=== PATIENT | male | born 1995 | race Two or more races ===

== ENCOUNTER 2021-07-23 08:25 | Emergency (ER) | payer OTHER ==
[~2021-07-23] VITALS: Ht 182.9 cm; Wt 93.2 kg
[2021-07-23] MEDS ORDERED: ASPIRIN 81 MG CHEW TABLET PO ONE (09:10)
[2021-07-23] MEDS ORDERED: GI COCKTAIL 50ML BTL(HYOSCYAMINE/MAALOX/LIDOCAINE VISCOUS)(1:3:1) PO ONE (09:10)
[2021-07-23] MEDS ORDERED: NITROGLYCERIN 0.4 MG SUBL TABLET SL STA (09:10)
[2021-07-23] MEDS ORDERED: ONDANSETRON 4MG/2ML VIAL IV ONE (09:20)
[2021-07-23] MEDS ORDERED: NS 1,000 ML IV ONE (09:20)
[2021-07-23 09:36] LABS: BASO # 0.1 10^3/uL (0.0-0.2); BASO % 0.8 % (0.0-1.0); EOS # 0.1 10^3/uL (0.0-0.5); EOS % 1.8 % (0.0-3.0); HEMATOCRIT 44.9 % (42.0-52.0); LYMPH # 0.9 10^3/uL (1.5-5.0); LYMPH % 13.9 % (24.0-44.0); MEAN CORPUSCULAR HEMOGLOBIN 27.9 pg (27.0-33.0); MEAN CORPUSCULAR HGB CONC 33.4 g/dl (32.0-36.5); MEAN CORPUSCULAR VOLUME 83.6 fl (80.0-96.0); MONO # 0.5 10^3/uL (0.0-0.8); MONO % 7.3 % (2.0-8.0); NEUTROPHILS % 75.7 % (36.0-66.0); PLATELET COUNT, AUTOMATED 194 10^3/uL (150-450); RED BLOOD COUNT 5.37 10^6/uL (4.30-6.10); WHITE BLOOD COUNT 6.6 10^3/uL (4.0-10.0)
[2021-07-23 09:41] VITALS: BP 141/64
[2021-07-23 10:06] LABS: AMPHETAMINES LEVEL URINE NEGATIVE (NEGATIVE); BARBITURATES URINE NEGATIVE (NEGATIVE); BENZODIAZEPINES URINE NEGATIVE (NEGATIVE); CANNABINOIDS URINE NEGATIVE (NEGATIVE); COCAINE METABOLITE URINE NEGATIVE (NEGATIVE); METHADONE URINE NEGATIVE (NEGATIVE); OPIATES URINE NEGATIVE (NEGATIVE); PHENCYCLIDINE URINE NEGATIVE (NEGATIVE)
[2021-07-23 10:31] LABS: ALBUMIN 3.8 GM/DL (3.2-5.2); ALT/SGPT 37 U/L (12-78); BILIRUBIN,DIRECT 0.2 MG/DL (0.0-0.2); BLOOD UREA NITROGEN 12 MG/DL (7-18); CALCIUM LEVEL 8.8 MG/DL (8.5-10.1); CARBON DIOXIDE LEVEL 26 MEQ/L (21-32); CHLORIDE LEVEL 105 MEQ/L (98-107); CK-MB VALUE MASS 2.3 NG/ML (<3.6); CPK CREATINE PHOSPHOKINASE 410 U/L (39-308); CREATININE FOR GFR 1.17 MG/DL (0.70-1.30); FREE T4 1.15 NG/DL (0.76-1.46); GLOMERULAR FILTRATION RATE > 60.0 (>60); GLUCOSE, FASTING 98 MG/DL (70-100); LIPASE 55 U/L (73-393); MB/CK RELATIVE INDEX 0.56 (< OR =4); NT-PRO BNP < 5 PG/ML (<125); POTASSIUM SERUM 3.4 MEQ/L (3.5-5.1); SODIUM LEVEL 140 MEQ/L (136-145); TOTAL PROTEIN 7.1 GM/DL (6.4-8.2); TROPONIN I < 0.02 NG/ML (< 0.10)
[2021-07-23] MEDS ORDERED: ISOVUE-370 76% 100ML VIAL As Ordered ONE (10:36)
--- NOTE | 2021-07-23 10:57 | REP ---
INDICATION: chest pain sob COMPARISON: None. TECHNIQUE: Axial contrast enhanced images from the thoracic inlet to the upper abdomen using pulmonary embolus technique with multiplanar re-formations. 75 ml Isovue 370 intravenous contrast material administered without complication. This CT examination was performed using the following dose reduction techniques: Automated exposure control, adjustment of mA and/or kv according to the patient's size, and use of iterative reconstruction technique. FINDINGS: Satisfactory enhancement of the pulmonary vasculature is achieved and no filling defects are identified to suggest pulmonary embolus. Further evaluation of the mediastinum demonstrates normal thoracic aorta, heart and pericardium. The bilateral lung [place] are well aerated and clear without consolidation pleural effusion or pneumothorax. Tracheobronchial tree is patent. No nodule or mass lesion is identified. No adenopathy noted. Surrounding musculoskeletal structures intact IMPRESSION: No evidence for pulmonary embolus. No acute mediastinal or pleural parenchymal process. <Electronically signed by Sukh Hirsch > 07/23/21 [id number]
[2021-07-23] MEDS ORDERED: POTASSIUM CHLORIDE 10MEQ SR TABLET PO ONE (11:35)
[2021-07-23 12:06] VITALS: BP 110/68
--- NOTE | 2021-07-23 19:45 | ECGEPIP ---
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
== END 2021-07-23 12:09 | disposition home or self-care (01) ==
LOC: EDBD 08:25 → M ED 08:25
DX: R07.9 Chest pain, unspecified (principal)
CPT/HCPCS: 71275; 80048; 80076; 80307; 82550; 82553; 83690; 83880; 84439; 84443; 84484; 85025; 93005; 93041; 94760; 96361; 96374; 99285; J2405; Q9967

== ENCOUNTER 2021-10-09 00:34 | Emergency (ER) | payer OTHER ==
[~2021-10-09] VITALS: Ht 182.9 cm; Wt 94.1 kg
[2021-10-09 02:19] LABS: RSV AMPLIFICATION NEGATIVE (NEGATIVE)
[2021-10-09 06:49] VITALS: BP 160/81
== END 2021-10-09 07:25 | disposition home or self-care (01) ==
LOC: M ED 00:34
DX: U07.1 COVID-19 (principal)

== ENCOUNTER 2022-11-29 20:02 | Emergency (ER) | payer OTHER ==
[~2022-11-29] VITALS: Ht 182.9 cm; Wt 90.9 kg
[2022-11-29 20:03] VITALS: BP 137/62
[2022-11-29] MEDS ORDERED: KETOROLAC 60MG 2ML VIAL IM ONE (22:55)
[2022-11-30] MEDS ORDERED: ISOVUE-370 76% 100ML VIAL As Ordered ONE (00:53)
[2022-11-30 00:58] LABS: HEMOGLOBIN 14.4 g/dl (13.5-17.5); MEAN CORPUSCULAR HEMOGLOBIN 28.9 pg (27.0-33.0); MEAN CORPUSCULAR HGB CONC 33.5 g/dl (32.0-36.5); MEAN CORPUSCULAR VOLUME 86.2 fl (80.0-96.0); PLATELET COUNT, AUTOMATED 190 10^3/uL (150-450); RED BLOOD COUNT 4.99 10^6/uL (4.30-6.10); WHITE BLOOD COUNT 7.3 10^3/uL (4.0-10.0)
[2022-11-30 01:21] LABS: CK-MB VALUE MASS < 1.0 NG/ML (<3.6)
[2022-11-30 01:22] LABS: BLOOD UREA NITROGEN 14 MG/DL (9-23); CALCIUM LEVEL 8.3 MG/DL (8.5-10.1); CARBON DIOXIDE LEVEL 29 MMOL/L (20-31); CHLORIDE LEVEL 108 MMOL/L (98-107); CPK CREATINE PHOSPHOKINASE 369 U/L (46-171); GLOMERULAR FILTRATION RATE > 60.0 (>60); GLUCOSE, FASTING 84 MG/DL (60-100); MB/CK RELATIVE INDEX 0.27 (< OR =4); POTASSIUM SERUM 3.8 MMOL/L (3.5-5.1); SODIUM LEVEL 141 MMOL/L (136-145)
[2022-11-30 01:24] LABS: THYROID STIMULATING HORMONE 2.845 uIU/ML (0.55-4.78)
[2022-11-30] MEDS ORDERED: ACETAMINOPHEN TAB 650MG DOSE (2X325MG) PO ONE (02:40)
[2022-11-30] MEDS ORDERED: RIZA10TA58 PO (02:52)
[2022-11-30] MEDS ORDERED: RIZATRIPTAN MLT 10 MG TAB PO ONE (02:55)
== END 2022-11-30 04:13 | disposition home or self-care (01) ==
LOC: M ED 20:02
DX: S06.0X0A Concussion without loss of consciousness, initial encounter (principal); H53.2 Diplopia; W10.8XXA Fall (on) (from) other stairs and steps, initial encounter; F32.A Depression, unspecified; Z79.52 Long term (current) use of systemic steroids
CPT/HCPCS: 70450; 70496; 70498; 72125; 73030; 73110; 73130; 80048; 82550; 82553; 84443; 84484; 85027; 93005; 96372; 99283; J1885